=== PATIENT | male | born 1940 | race Caucasian/White ===

== ENCOUNTER 2017-09-22 08:23 | Day surgery (SDC) | payer OTHER ==
[2017-09-21 16:04] VITALS: BMI 20.6
[2017-09-22] MEDS ORDERED: LIDOCAINE HCL 1%, 10 MG/ML (20ML VIAL) ONE (10:48)
[2017-09-22] MEDS ORDERED: PROPOFOL 20 ML ONE (10:58)
[2017-09-22] MEDS ORDERED: MIDAZOLAM HCL 2 MG/2 ML SINGLE DOSE VIAL ONE (10:58)
[2017-09-22] MEDS ORDERED: ceFAZolin SODIUM 1 GM VIAL IVPB ONE (11:00)
[2017-09-22] MEDS ORDERED: SODIUM CHLORIDE 0.9% P/F 10 ML VIAL IJ ONE (11:04)
[2017-09-22] MEDS ORDERED: ceFAZolin SODIUM 1 GM VIAL ONE (11:04)
[2017-09-22] MEDS ORDERED: LIDOCAINE HCL 1%, 10 MG/ML (20ML VIAL) INF ONE (11:11)
--- NOTE | 2017-09-22 11:47 | OP ---
Operative Note - Note: Operative Date: 09/22/17 Pre-Operative Diagnosis: rule out temporal arteritis Operation: right temporal artery biopsy Post-Operative Diagnosis: Same as Pre-op Surgeon: Lorenzo William Anesthesia: Fractional Estimated Blood Loss (mls): 10 Operative Report Dictated: Yes
--- NOTE | 2017-09-22 11:49 | HP ---
Admitting History and Physical - Admission Chief Complaint: pt with elevated ESR, CRP, headaches. Sent by rheumotology to rule out temporal arteritis Limitations to Obtaining History: No Limitations - Smoking History Smoking history: Former smoker Have you smoked in the past 12 months: No If you are a former smoker, when did you quit?: 1974 - Alcohol/Substance Use Hx Alcohol Use: Yes (occas) Home Medications - Allergies Allergies/Adverse Reactions: Allergies Allergy/AdvReac Type Severity Reaction Status Date / Time No Known Drug Allergies Allergy Verified 09/22/17 09:03 ANESTHESIA AdvReac Intermediate SYNCOPE Uncoded 09/22/17 09:03 - Home Medications Home Medications: Ambulatory Orders Aspirin [ASA -] 81 mg PO DAILY 10/10/14 Simvastatin [Zocor -] 20 mg PO UTDICT 10/10/14 Prednisone 15 mg PO DAILY 09/21/17 Valsartan/Hydrochlorothiazide [Diovan Hct 160-12.5 mg Tab] 1 each PO DAILY 09/21 Tumeric 1 tab PO DAILY 09/22/17 Review of Systems - Review of Systems Constitutional: reports: No Symptoms Eyes: reports: No Symptoms HENT: reports: No Symptoms Neck: reports: No Symptoms Cardiovascular: reports: No Symptoms Respiratory: reports: No Symptoms Gastrointestinal: reports: No Symptoms Genitourinary: reports: No Symptoms Musculoskeletal: reports: No Symptoms Integumentary: reports: No Symptoms Neurological: reports: No Symptoms Endocrine: reports: No Symptoms Hematology/Lymphatic: reports: No Symptoms Psychiatric: reports: No Symptoms Physical Examination Vital Signs: Vital Signs Temperature 97.9 F 09/22/17 09:00 Pulse Rate 91 H 09/22/17 09:00 Respiratory Rate 20 09/22/17 09:00 Blood Pressure 145/88 09/22/17 09:00 O2 Sat by Pulse Oximetry (%) 96 09/22/17 08:59 Constitutional: Yes: Well Nourished, No Distress, Calm Eyes: Yes: WNL, Conjunctiva Clear, EOM Intact HENT: Yes: WNL, Atraumatic, Normocephalic Neck: Yes: WNL, Supple, Trachea Midline Cardiovascular: Yes: WNL, Regular Rate and Rhythm Respiratory: Yes: WNL, Regular, CTA Bilaterally Gastrointestinal: Yes: WNL, Normal Bowel Sounds Musculoskeletal: Yes: WNL Extremities: Yes: WNL Edema: No Integumentary: Yes: WNL Neurological: Yes: WNL, Alert, Oriented ...Motor Strength: WNL Psychiatric: Yes: WNL Problem List - Problems (1) Temporal arteritis Code(s): M31.6 - OTHER GIANT CELL ARTERITIS Assessment/Plan Rule out temporal arteritis 1. For biopsy today
[2017-09-22 12:03] VITALS: TEMP 97.9
[2017-09-22] MEDS ORDERED: PROMETHAZINE HCL 25 MG/1 ML VIAL IVPB PRN (12:11)
[2017-09-22] MEDS ORDERED: ONDANSETRON 4 MG/2 ML VIAL IVPUSH PRN (12:11)
[2017-09-22] MEDS ORDERED: LACTATED RINGERS SOLUTION 1,000 ML IV SCH (12:15)
--- NOTE | 2017-09-22 12:15 | OP ---
DATE OF OPERATION: 09/22/2017 PREOPERATIVE DIAGNOSIS: Rule out temporal arteritis. POSTOPERATIVE DIAGNOSIS: Rule out temporal arteritis. PROCEDURE: Right temporal artery biopsy. SURGEON: Lorenzo Martin DO ANESTHESIA: Fractional. BLOOD LOSS: 10 mL. INDICATION FOR PROCEDURE: The patient is a 77-year-old male who has history of polymyalgia rheumatica but is now having increased headaches and has an elevated ESR and CRP. He saw Dr. 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 Patient came into ambulatory surgery. Patient was consented for the surgery, understanding all risks, benefits, and alternatives, then taken to the operating room. DESCRIPTION OF PROCEDURE: Once in the operating room, he was laid on the operating table in supine manner, and the area of the right temporal region was prepped and draped in a sterile surgical manner. We then went ahead and, using a marking pen, mauro a 3-cm incision with our skin marker over the pulse. We then went ahead and 10 mL of lidocaine 1% in the area. We then took a 15-blade and made the 3-cm incision. Bovie electrocautery used to control hemostasis, and we used the Bovie electrocautery to get through all the subcutaneous tissue and through the fascia. We then dissected out the fascia, and we got down to our temporal artery. Temporal artery was visualized. It was pulsatile. We then used a right angle and we were able to dissect out about a 2-cm portion of the temporal artery. We then went ahead and used 4-0 silk and we ligated the artery proximally and distally and sent it to Pathology. The wound was then well irrigated, 3-0 Vicryl used and the subcutaneous tissue was approximated in an interrupted manner, and the skin was closed with 4-0 Biosyn in subcuticular running fashion. Area was wet and dried. Two Steri-Strips were placed. Patient tolerated the procedure with no complications. Total blood loss 10 mL. LORENZO MARTIN DO PRICING DIRECTOR/[id number]
[2017-09-22 14:39] VITALS: PULSE 78
[2017-09-22 14:47] VITALS: BP 140/70
--- NOTE | 2017-09-23 12:11 | PATH ---
Surgical Pathology Report Patient Name: COURTNEY ARREDONDO Med. Rec. #: [id number] /Age/Gender: 1940 (Age: 77) / M Account: [id number] Location: [facility] Taken: 09/22/2017 Received: 09/22/2017 Reported: 09/23/2017 Physicians: Lorenzo William Specimen(s) Received TEMPORAL ARTERY BIOPSY RIGHT Clinical History Temporal artery arteritis Final Diagnosis TEMPORAL ARTERY, RIGHT, BIOPSY: MUSCULAR ARTERY WITH NO EVIDENCE OF ARTERITIS. MULTIPLE LEVELS EXAMINED. Electronically Signed Jenifer Kelley M.D. Gross Description Received in formalin labeled "temporal right artery biopsy," is a 1.3 cm in length portion of vasculature, consistent with a temporal artery biopsy. The specimen is sectioned and entirely submitted in one cassette. DL/09/22/2017 saudi/09/22/2017
== END 2017-09-22 13:00 | disposition home or self-care (01) ==
LOC: JASU-SURG 08:23
PROVIDERS: ATTEND Surgery Vascular Surgery
PROC: 03BS0ZX Excision of Right Temporal Artery, Open Approach, Diagnostic (ICD-10-PCS; principal; 2017-09-22 10:00)
DX: M35.3 Polymyalgia rheumatica (principal); R51 Headache
CPT/HCPCS: 88305-TC; 94760

== ENCOUNTER 2020-01-03 09:52 | Emergency (ER) | payer OTHER ==
[2020-01-03 10:01] VITALS: BMI 22.6
[2020-01-03 11:21] LABS: BASO % 0.3 % (0-2.0); HEMOGLOBIN 14.6 GM/dL (11.7-16.9); LYMPH % 14.5 % (8-40); MCH 30.8 pg (25.7-33.7); MCHC 33.9 g/dl (32.0-35.9); MEAN CELL VOLUME 90.8 fl (80-96); MEAN PLT VOLUME 11.1 fl (7.5-11.1); MONO % 5.4 % (3.8-10.2); NEUT % 77.8 % (42.8-82.8); PLATELET COUNT 175 K/MM3 (134-434); RBC 4.74 M/mm3 (4.00-5.60); RDW 13.9 % (11.9-15.9); WHITE BLOOD COUNT 7.6 K/mm3 (4.0-10.0)
[2020-01-03 11:27] LABS: INR 1.02 (0.83-1.09)
[2020-01-03 11:29] LABS: ACTIVATED PTT 29.9 SECONDS (25.2-36.5)
[2020-01-03 11:37] LABS: URINE APPEARANCE CLEAR; URINE BILIRUBIN NEGATIVE (NEGATIVE); URINE COLOR YELLOW; URINE GLUCOSE (UA) NEGATIVE (NEGATIVE); URINE KETONE NEGATIVE (NEGATIVE); URINE LEUK ESTERASE NEGATIVE (NEGATIVE); URINE NITRITE NEGATIVE (NEGATIVE); URINE PROTEIN NEGATIVE (NEGATIVE); URINE UROBILINOGEN 0.2 mg/dL (0.2-1.0)
[2020-01-03 11:55] LABS: BILIRUBIN,TOTAL 0.8 mg/dL (0.2-1); BLOOD UREA NITROGEN 15.8 mg/dL (7-18); CALCIUM 9.6 mg/dL (8.5-10.1); CREATININE 0.9 mg/dL (0.55-1.3); POTASSIUM 4.2 mmol/L (3.5-5.1); TOT PROT 7.2 g/dl (6.4-8.2)
--- NOTE | 2020-01-03 11:55 | PDOC ---
History of Present Illness - General Chief Complaint: Pain, Acute Stated Complaint: ABD PAIN Time Seen by Provider: 01/03/20 10:39 History Source: Patient Exam Limitations: No Limitations - History of Present Illness Initial Comments: 01/03/20 11:51 44-year-old male denies past medical history presents complaining of toothache x 3 days. Patient denies trauma, fever, chills, facial swelling, headache, ear pain, chest pain, shortness of breath or any other complaint. Patient took ibuprofen 600 mg last night with minimal relief. Reports he has a dental appointment scheduled in 1 month. ROS: as above PE: GENERAL: well-appearing, NAD HEAD: NCAT EYES: Pupils equal, round and reactive to light, sclera anicteric, conjunctiva clear ENT: pharynx: no erythema, no exudate, uvula midline NECK: supple CHEST: nontender RESP: clear, no w/r/r CARDIO: rrr, no m/g/r ABD: +BS, soft, left lower quadrant tenderness to palpation, no guarding, no rebound, small swelling noted to left inguinal area, normal skin color BACK: no midline spinal ttp, no CVAT EXTREMITIES: Normal range of motion, no edema NEUROLOGICAL: Normal speech, normal gait SKIN: Warm, Dry Is this a multiple visit Asthma Patient?: No Past History - Medical History Allergies/Adverse Reactions: Allergies Allergy/AdvReac Type Severity Reaction Status Date / Time No Known Drug Allergies Allergy Verified 01/03/20 09:57 ANESTHESIA AdvReac Intermediate SYNCOPE Uncoded 01/03/20 09:57 Home Medications: Ambulatory Orders Aspirin [ASA -] 81 mg PO DAILY 10/10/14 Simvastatin [Zocor -] 20 mg PO UTDICT 10/10/14 Prednisone 10 mg PO DAILY 09/21/17 Valsartan/Hydrochlorothiazide [Diovan Hct 160-12.5 mg Tab] 1 each PO DAILY 09/21/17 Tumeric 1 tab PO DAILY 09/22/17 Glimepiride 4 mg PO BID 09/30/17 Anemia: No Asthma: No Cancer: No Cardiac Disorders: No CVA: No COPD: No CHF: No Dementia: No Diabetes: Yes ("alittle high") GI Disorders: No Disorders: Yes (enlarged prostate) HTN: Yes Hypercholesterolemia: Yes Kidney Stones: Yes Liver Disease: No Seizures: No Thyroid Disease: Yes (nodule-"negative") - Surgical History Abdominal Surgery: Yes (henia repair inguinal-1 month ago) - Psycho-Social/Smoking History Smoking History: Never smoked Have you smoked in the past 12 months: No If you are a former smoker, when did you quit?: 1974 Information on smoking cessation initiated: No - Substance Abuse Hx (Audit-C & DAST Scrn) How often the patient has a drink containing alcohol: Never Score: In Men: 4 or > Positive; In Women: 3 or > Positive: 0 Screen Result (Pos requires Nsg. Audit-10AR): Negative In the last yr the pt used illegal drug/Rx for NonMed reason: No Score: Yes response is considered Positive: 0 Screen Result (Positive result requires Nsg. DAST-10): Negative *Physical Exam - Vital Signs Last Vital Signs Temp Pulse Resp BP Pulse Ox 97.9 F 77 17 128/76 99 01/03/20 09:57 01/03/20 09:57 01/03/20 09:57 01/03/20 09:57 01/03/20 09:57 ED Treatment Course - LABORATORY CBC & Chemistry Diagram: 01/03/20 10:44 01/03/20 10:44 - ADDITIONAL ORDERS Additional order review: Laboratory Results 01/03/20 01/03/20 10:44 10:44 PT with INR 12.00 INR 1.02 PTT (Actin FS) 29.9 Urine Color Yellow Urine Appearance Clear Urine pH 8.0 Ur Specific [place] 1.007 L Urine Protein Negative Urine Glucose (UA) Negative Urine Ketones Negative Urine Blood Negative Urine Nitrite Negative Urine Bilirubin Negative Urine Urobilinogen 0.2 Ur Leukocyte Esterase Negative 01/03/20 10:44 RBC 4.74 MCV 90.8 MCHC 33.9 RDW 13.9 MPV 11.1 Neutrophils % 77.8 Lymphocytes % 14.5 D Monocytes % 5.4 Eosinophils % 2.0 Basophils % 0.3 - RADIOLOGY Radiology Studies Ordered: Category Date Time Status ABDOMEN & PELVIS CT WITH CONTR [CT] Stat CT Scan 01/03/20 11:08 Ordered Medical Decision Making - Medical Decision Making 01/03/20 11:54 44-year-old male denies past medical history presents complaining of toothache x 3 days. Patient denies trauma, fever, chills, facial swelling, headache, ear pain, chest pain, shortness of breath or any other complaint. Patient took ibuprofen 600 mg last night with minimal relief. Reports he has a dental appointment scheduled in 1 month. Labs including UA and urine culture CTAP w/con IV fluids Reassess 01/03/20 15:44 Labs and UA reviewed CTAP: No diverticulitis, left inguinal hernia, prostatic enlargement, no acute pathology Copy of report provided to patient Stable for discharge Patient agrees to follow-up with PMD Return precautions discussed Discharge - Discharge Information Problems reviewed: Yes Clinical Impression/Diagnosis: Abdominal pain Qualifiers: Abdominal location: left lower quadrant Qualified Code(s): R10.32 - Left lower quadrant pain Condition: Stable Disposition: HOME - Admission No - Follow up/Referral Referrals: Rigoberto Mishra MD [Primary Care Provider] - - Patient Discharge Instructions Additional Instructions: Take acetaminophen 650 mg every 6 hours as needed for pain Follow-up with your primary care doctor next week Return to the ED if you develop fever, chills, worsening abdominal pain or any concerning symptom - Post Discharge Activity
[2020-01-03 14:16] VITALS: BP 143/67; PULSE 69; TEMP 98.6
--- NOTE | 2020-01-03 14:57 | EKG ---
Test Reason : Blood Pressure : / mmHG Vent. Rate : 074 BPM Atrial Rate : 074 BPM P-R Int : 000 ms QRS Dur : 092 ms QT Int : 388 ms P-R-T Axes : 000 044 067 degrees QTc Int : 430 ms POOR DATA QUALITY, INTERPRETATION MAY BE ADVERSELY AFFECTED , appears to be atrial fibrillation. Confirmed by KARIE ANDREWS MD ([id number]) on 01/03/2020 2:56:52 PM Referred By: Confirmed By:KARIE ANDREWS MD
== END 2020-01-03 16:00 | disposition home or self-care (01) ==
LOC: JER 09:52
DX: R10.32 Left lower quadrant pain (principal)
CPT/HCPCS: 36415; 74177-TC; 80053; 81003; 83690; 85025; 85610; 85730; 87086; 93005; 93010; 99285-25; Q9967

== ENCOUNTER 2022-01-18 16:44 | Emergency (ER) | payer OTHER ==
[2022-01-18 17:00] VITALS: BP 109/64; PULSE 80; RESP 18; TEMP 98; BMI 23.3
[2022-01-18] MEDS ORDERED: DEXAMETHASONE SOD PHOSPHATE 10 MG/1 ML VIAL PO ONE (17:31)
[2022-01-18] MEDS ORDERED: DEXAMETHASONE SOD PHOSPHATE 10 MG/1 ML VIAL ONE (17:36)
== END 2022-01-18 17:43 | disposition home or self-care (01) ==
LOC: JER 16:44
DX: U07.1 COVID-19 (principal)
CPT/HCPCS: 99283-25; J1100

== ENCOUNTER 2024-02-09 14:03 | Emergency (ER) | payer OTHER ==
[2024-02-09 15:43] VITALS: TEMP 97.5; BMI 22.8
[2024-02-09 16:36] LABS: BASO % 0.4 % (0-2.0); EOS % 1.7 % (0-4.5); HEMATOCRIT 36.2 % (35.4-49); HEMOGLOBIN 12.1 GM/dL (11.7-16.9); LYMPH % 8.3 % (8-40); MCH 29.4 pg (25.7-33.7); MCHC 33.4 g/dl (32.0-35.9); MONO % 5.7 % (3.8-10.2); NEUT % 83.9 % (42.8-82.8); PLATELET COUNT 384 10^3/uL (134-434); RBC 4.11 M/mm3 (4.00-5.60); RDW 13.1 % (11.9-15.9); WHITE BLOOD COUNT 10.4 K/mm3 (4.0-10.0)
[2024-02-09 16:58] LABS: POTASSIUM 4.2 mmol/L (3.5-5.1)
[2024-02-09 17:00] LABS: ALBUMIN 2.5 g/dl (3.4-5.0); BLOOD UREA NITROGEN 13.9 mg/dL (7-18); CALCIUM 9.6 mg/dL (8.5-10.1)
[2024-02-09 17:04] LABS: CREATININE 0.8 mg/dL (0.55-1.3)
[2024-02-09 17:05] LABS: BILIRUBIN,TOTAL 0.6 mg/dL (0.2-1); TOT PROT 6.2 g/dl (6.4-8.2)
[2024-02-09 17:32] LABS: PH,URINE 5.5 (5.0-8.0); URINE APPEARANCE CLEAR; URINE BILIRUBIN NEGATIVE (NEGATIVE); URINE COLOR YELLOW; URINE GLUCOSE (UA) 1+ (NEGATIVE); URINE KETONE NEGATIVE (NEGATIVE); URINE LEUK ESTERASE NEGATIVE (NEGATIVE); URINE NITRITE NEGATIVE (NEGATIVE); URINE PROTEIN NEGATIVE (NEGATIVE)
[2024-02-09 17:54] LABS: HIV INTERPRETATION NEGATIVE (NEGATIVE)
[2024-02-09 20:12] VITALS: BP 138/82; PULSE 90; RESP 14
== END 2024-02-09 20:59 | disposition home or self-care (01) ==
LOC: JER 14:03
DX: L03.311 Cellulitis of abdominal wall (principal)
CPT/HCPCS: 36415; 72193-TC; 80053; 81003; 85025; 86803; 87086; 87389; 99285-25